=== PATIENT | female | born 1950 | race Caucasian/White ===

== ENCOUNTER 2017-12-30 10:53 | Outpatient (CLI) | payer OTHER ==
[~2017-12-30 10:53] MED LIST: PERCOCET 5-3251 EACH PO
== END 2017-12-30 10:59 | disposition home or self-care (01) ==
LOC: NUCLEAR 10:53
DX: I87.2 Venous insufficiency (chronic) (peripheral) (principal)

== ENCOUNTER 2020-04-13 11:27 | Outpatient (CLI) | payer OTHER | END 2020-04-13 11:31 | disposition home or self-care (01) | LOC: PPH VACUNA 11:27 | DX: Z23 Encounter for immunization (principal) ==

== ENCOUNTER → 2020-05-04 08:00 | Outpatient (CLI) | payer OTHER | END | disposition home or self-care (01) | LOC: PPH VACUNA 08:00 | PROVIDERS: ATTEND Emergency Medicine Pediatric Emergency Medicine | DX: Z23 Encounter for immunization (principal) ==

== ENCOUNTER 2020-10-25 05:50 | Day surgery (SDC) | payer OTHER ==
[~2020-10-25 05:50] MED LIST changes: +CRESTOR5 MG PO; +TENORMIN25 MG PO
[2020-10-25] MEDS ORDERED: MACROBID 100 M100 MG PO (11:21)
[2020-10-25] MEDS ORDERED: ULTRACET PO (11:22)
== END 2020-10-25 13:45 | disposition home or self-care (01) ==
LOC: CIR.AMB 05:50
PROVIDERS: ATTEND Obstetrics & Gynecology Gynecology
DX: N39.3 Stress incontinence (female) (male) (principal); Z20.822 Contact with and (suspected) exposure to COVID-19
CPT/HCPCS: 57288; C1771

== ENCOUNTER → 2021-05-16 11:00 | Outpatient (CLI) | payer OTHER ==
[~2021-05-16 11:00] MED LIST changes: +MACROBID 100 M100 MG PO; +ULTRACET PO
== END | disposition home or self-care (01) ==
LOC: NUCLEAR 11:00
PROVIDERS: ATTEND Internal Medicine Cardiovascular Disease
DX: I10 Essential (primary) hypertension (principal)

== ENCOUNTER 2021-05-16 11:51 | Outpatient (CLI) | payer OTHER | END 2021-05-16 11:56 | disposition home or self-care (01) | LOC: RAD 11:51 | PROVIDERS: ATTEND Internal Medicine Cardiovascular Disease | DX: J44.9 Chronic obstructive pulmonary disease, unspecified (principal) ==

== ENCOUNTER 2023-10-24 10:51 | Outpatient (CLI) | payer OTHER | END 2023-10-24 10:52 | disposition home or self-care (01) | LOC: NUCLEAR 10:51 | PROVIDERS: ATTEND Internal Medicine Cardiovascular Disease | DX: I87.2 Venous insufficiency (chronic) (peripheral) (principal) ==

== ENCOUNTER 2024-01-02 12:38 | Emergency (ER) | payer OTHER ==
[~2024-01-02] VITALS: Ht 154.9 cm; Wt 67.1 kg
[2024-01-02 12:55] VITALS: BP 140/70; O2SAT 100
[2024-01-02] MEDS ORDERED: MINERAL OIL 30 ML BLIST.PACK PO ONE (13:15)
[2024-01-02] MEDS ORDERED: LACTULOSE 20 G/30 ML BLIST.PACK PO ONE (13:15)
[2024-01-02] MEDS ORDERED: MAGNESIUM HYDROXIDE 400 MG/5 ML ML PO ONE (13:15)
== END 2024-01-02 18:10 | disposition home or self-care (01) ==
LOC: ER 12:40
DX: K59.00 Constipation, unspecified (principal); I10 Essential (primary) hypertension

== ENCOUNTER 2025-02-16 07:52 | Outpatient (CLI) | payer OTHER | END 2025-02-16 07:53 | disposition home or self-care (01) | LOC: NUCLEAR 07:52 | PROVIDERS: ATTEND Internal Medicine Cardiovascular Disease | DX: I10 Essential (primary) hypertension (principal); R07.9 Chest pain, unspecified ==